=== PATIENT | male | born 1990 | race Caucasian/White ===

== ENCOUNTER 2019-09-17 15:23 | Emergency (ER) | payer MEDICAID ==
[~2019-09-17] VITALS: Ht 182.9 cm; Wt 80.0 kg
[2019-09-17] MEDS ORDERED: SODIUM CHLORIDE 0.9% 1,000 ML IV ONE (15:36)
[2019-09-17 16:15] LABS: BASOPHILS % 0.2 % (0.0-2.0); EOSINOPHILS % 0.4 % (0.0-5.0); HEMATOCRIT. 41.7 % (42.0-52.0); HEMOGLOBIN. 14.4 g/dL (14.0-18.0); LYMPHOCYTES % 14.8 % (20.0-50.0); MEAN CORPUSCULAR VOLUME 92.7 fL (80.0-94.0); MEAN PLATELET VOLUME 8.3 fl (7.4-10.4); MONOCYTES % 10.2 % (2.0-8.0); NEUTROPHILS % 74.4 % (40.0-76.0); PLATELET 314 x1000/uL (130-400)
[2019-09-17 16:17] LABS: CHLORIDE 107 mEq/L (98-107)
[2019-09-17 16:21] LABS: ETHANOL BLOOD < 10 mg/dL
[2019-09-17 16:59] VITALS: BP 130/77
== END 2019-09-17 17:00 | disposition home or self-care (01) ==
LOC: ER 15:23
DX: F15.129 Other stimulant abuse with intoxication, unspecified (principal); F14.129 Cocaine abuse with intoxication, unspecified; R45.1 Restlessness and agitation; R00.0 Tachycardia, unspecified
CPT/HCPCS: 36415; 80053; 80320; 85025; 93005; 99284; J7030; Z7610; G0480

== ENCOUNTER 2019-09-18 23:07 | Emergency (ER) | payer MEDICAID ==
[~2019-09-18] VITALS: Ht 180.3 cm; Wt 82.0 kg
[2019-09-18] MEDS ORDERED: SODIUM CHLORIDE 0.9% 1,000 ML IV ONE (23:58)
[2019-09-19] MEDS ORDERED: LORAZEPAM 2MG/ML CPJ IV ONE
[2019-09-19 01:09] LABS: *AMPHETAMINES SCREEN URINE PRESUMTIVE POSITIVE (NEGATIVE); *BARBITURATES SCREEN URINE NEGATIVE (NEGATIVE); *BENZODIAZEPINES SCREEN URINE NEGATIVE (NEGATIVE); *COCAINE SCREEN URINE NEGATIVE (NEGATIVE); CANNABINOID URINE SCREEN PRESUMTIVE POSITIVE (NEGATIVE); METHADONE URINE SCREEN NEGATIVE (NEGATIVE); OPIATES URINE SCREEN NEGATIVE (NEGATIVE); PHENCYCLIDINE URINE SCREEN NEGATIVE (NEGATIVE)
[2019-09-19 01:48] LABS: BASOPHILS % 0.7 % (0.0-2.0); EOSINOPHILS % 1.8 % (0.0-5.0); HEMATOCRIT. 36.9 % (42.0-52.0); HEMOGLOBIN. 12.6 g/dL (14.0-18.0); LYMPHOCYTES % 26.7 % (20.0-50.0); MEAN CORPUSCULAR HEMOGLOBIN 31.8 pg (28.0-32.0); MEAN CORPUSCULAR VOLUME 93.3 fL (80.0-94.0); MEAN PLATELET VOLUME 7.9 fl (7.4-10.4); MONOCYTES % 9.8 % (2.0-8.0); PLATELET 305 x1000/uL (130-400); RED BLOOD CELL COUNT 3.96 mill/uL (4.7-6.1); RED CELL DISTRIBUTION WIDTH 12.8 % (11.6-14.6)
[2019-09-19 01:54] LABS: CHLORIDE 111 mEq/L (98-107)
[2019-09-19 01:59] LABS: ETHANOL BLOOD < 10 mg/dL
[2019-09-19 02:02] LABS: CREATINE KINASE 47 IU/L (39-308)
[2019-09-19 12:25] VITALS: BP 114/61
== END 2019-09-19 15:32 | disposition home or self-care (01) ==
LOC: ER 23:30
DX: R00.2 Palpitations (principal); F15.10 Other stimulant abuse, uncomplicated; F29 Unspecified psychosis not due to a substance or known physiological condition; R45.851 Suicidal ideations; F17.290 Nicotine dependence, other tobacco product, uncomplicated
CPT/HCPCS: 36415; 80053; 80305; 80320; 82550; 83690; 84484; 85025; 93005; 96374; 99284; J2060; J7030; Z7610; G0480